=== PATIENT | male | born 2000 ===

== ENCOUNTER 2020-09-23 06:27 | Emergency (ER) | payer SELFPAY ==
[~2020-09-23] VITALS: Ht 170.2 cm; Wt 60.0 kg
== END 2020-09-23 09:42 | disposition home or self-care (01) ==
LOC: ED 06:27
DX: R10.13 Epigastric pain (principal); R11.10 Vomiting, unspecified
CPT/HCPCS: 80053; 81001; 83690; 85025; 96374; 99284-25; J2405; J7030